=== PATIENT | female | born 1995 | race Caucasian/White ===

== ENCOUNTER 2016-10-05 18:17 | Emergency (ER) | payer OTHER ==
[~2016-10-05] VITALS: Ht 160 cm; Wt 104.5 kg
[~2016-10-05 18:17] MED LIST: MECL25TA2 PO; NITR-58 PO; ONDA4TAB35 PO
[2016-10-05 18:32] VITALS: Ht 160 cm; Wt 104.5 kg
[2016-10-05] MEDS ORDERED: ONDANSETRON 4 MG INJ IV STA (18:58)
[2016-10-05] MEDS ORDERED: KETOROLAC 30 MG INJ IV STA (18:58)
[2016-10-05] MEDS ORDERED: DIPHENHYDRAMINE 50 MG INJ IV ONE (19:00)
[2016-10-05] MEDS ORDERED: SOD CHLORIDE 0.9% 1,000 ML IV ONE (19:00)
[2016-10-05 19:57] LABS: ADD SCAN DIFF NO
[2016-10-05 20:03] LABS: ADD UMIC NO; URINE BILIRUBIN (Dip) NEGATIVE (NEGATIVE); URINE BLOOD (Dip) NEGATIVE (NEGATIVE); URINE COLOR LT. YELLOW (YELLOW); URINE GLUCOSE (Dip) NEGATIVE (NEGATIVE); URINE KETONES (Dip) NEGATIVE (NEGATIVE); URINE LEUKOCYTE ESTERASE (Dip) NEGATIVE (NEGATIVE); URINE NITRITE (Dip) NEGATIVE (NEGATIVE); URINE TOTAL PROTEIN (Dip) NEGATIVE (NEGATIVE); URINE UROBILINOGEN (Dip) 0.2 E.U./dL (0.1-1.0)
[2016-10-05 20:07] LABS: BASOPHIL # 0.1 10^3/ul (0.0-0.1); BASOPHILS % 0.4 % (0.0-2.0); EOSINOPHILS # 0.1 10^3/ul (0.0-0.5); EOSINOPHILS % 0.4 % (0.0-7.0); HEMATOCRIT 41.5 % (37.0-47.0); HEMOGLOBIN 14.3 g/dl (12.0-16.0); LYMPHOCYTES # 1.4 10^3/ul (0.8-2.9); LYMPHOCYTES % 7.5 % (15.0-51.0); MEAN CORPUSCULAR HEMOGLOBIN 30.1 pg (29.0-33.0); MEAN CORPUSCULAR HGB CONC 34.5 g/dl (32.0-37.0); MEAN CORPUSCULAR VOLUME 87.4 fl (82.0-101.0); MEAN PLATELET VOLUME 10.1 fl (7.4-10.4); MONOCYTES % 5.3 % (0.0-11.0); NEUTROPHIL # 16.6 10^3/ul (1.6-7.5); NEUTROPHILS % 85.9 % (39.0-77.0); PLATELET COUNT 247 10^3/UL (140-415); RED BLOOD COUNT 4.75 10^6/ul (4.20-5.40); RED CELL DISTRIBUTION WIDTH 12.3 % (11.5-14.5); WHITE BLOOD COUNT 19.3 10^3/ul (4.8-10.8)
[2016-10-05 20:18] LABS: ALBUMIN 4.7 g/dl (3.3-4.9); ALBUMIN/GLOBULIN RATIO 1.2; BILIRUBIN,INDIRECT 0.6 mg/dl (0-1.1); BILIRUBIN,TOTAL 0.6 mg/dl (0.2-1.3); CALCIUM 9.8 mg/dl (8.4-10.2); CREATININE 0.71 mg/dl (0.44-1.00); POTASSIUM 3.8 mmol/L (3.5-5.1); TOTAL PROTEIN 8.6 g/dl (6.1-8.1)
[2016-10-05] MEDS ORDERED: ONDA-43 PO (20:53)
[2016-10-05] MEDS ORDERED: NAPR-260 PO (20:54)
[2016-10-05] MEDS ORDERED: HYDR-906 PO (20:55)
[2016-10-05 21:05] VITALS: BP 126/70; PULSE 62; RESP 18; TEMP 98.3
--- NOTE | 2016-10-05 21:57 | ERD ---
ER Documentation Chief Complaint Date/Time DATE: 10/05/16 TIME: 21:51 Chief Complaint GARCIA SINCE THIS AM. +N/V HPI This is a 21-year-old female presents to the ER with a headache, sore throat, fever, chills, nausea, vomiting that started this morning. Patient also complains of photophobia. Bleeding is nonbilious nonbloody. She denies diarrhea. Patient has a known extensive history of migraine headaches, which started when she was a teenager. Patient has not gotten a migraine in a few months. States is exactly how her migraines present. Patient denies any neck pain or neck stiffness. She denies any head trauma. She denies any vision loss or vision changes. Patient denies any dizziness. ROS 12 point review of systems was done, all negative except per HPI. Medications Home Meds Active Scripts Hydrocodone/Acetaminophen ([place] 5-325 Tablet) 1 Each Tablet, 1 TAB PO Q6H Y for PAIN, #10 TAB Prov:DOREEN TATUM 10/05/16 Naproxen* (Naprosyn*) 500 Mg Tablet, 500 MG PO BID Y for PAIN AND/OR INFLAMMATION, #30 TAB Prov:DOREEN TATUM 10/05/16 Ondansetron Hcl* (Zofran*) 4 Mg Tab, 4 MG PO Q4H Y for NAUSEA AND OR VOMITING for 15 Days, TAB Prov:DOREEN TATUM 10/05/16 Nitrofurantoin Monohyd Macrocr* (Macrobid*) 100 Mg Capsr, 100 MG PO BID for 5 Days, CAP Prov:KYLER HANSEN PA-C 09/28/15 Ondansetron Hcl* (Zofran* ODT) 4 mg -ODT Tab.disper, 4 MG PO Q6 Y for NAUSEA AND /OR VOMITING, #20 TAB Prov:KYLER HANSEN PA-C 09/28/15 Meclizine Hcl* (Antivert*) 25 Mg Tablet, 25 MG PO Q6H Y for DIZZINESS, #20 TAB Prov:KYLER HANSEN PA-C 09/28/15 Allergies Allergies: Coded Allergies: No Known Allergy (Unverified , 03/05/12) PMhx/Soc History of Surgery: Yes ( 2010) Anesthesia Reaction: No Hx Neurological Disorder: Yes (migraines) Hx Respiratory Disorders: No Hx Cardiac Disorders: Yes (high bp during ) Hx Psychiatric Problems: No Hx Miscellaneous Medical Probl: No Hx Alcohol Use: No Hx Substance Use: No Hx Tobacco Use: No Smoking Status: Never smoker Physical Exam Vitals Vital Signs Date Time Temp Pulse Resp B/P Pulse Ox O2 Delivery O2 Flow Rate FiO2 10/05/16 21:05 98.3 62 18 126/70 100 Room Air 10/05/16 18:32 100.8 103 20 136/66 100 Physical Exam GENERAL: The patient is well developed and appropriate for usual state of health , in no apparent distress. HEENT: Atraumatic. Conjunctivae are pink. Pupils equal, round, and reactive to light. Extraocular muscles are grossly intact. Bilateral tympanic membranes are clear with no evidence of erythema, bulging or perforation. No sinus tenderness. Bilateral erythematous tonsils with no tonsillar exudates, uvular deviation, kissing tonsils. NECK: C-spine is soft and supple. There is no cervical lymphadenopathy. CHEST: Clear to auscultation bilaterally. There are no rales, wheezes or rhonchi. HEART: Regular rate and rhythm. No murmurs, clicks, rubs or gallops. EXTREMITIES: Equal pulses bilaterally. There is no peripheral clubbing, cyanosis or edema. No focal swelling or erythema. Full range of motion. Grossly neurovascularly intact. NEURO: Alert and oriented. Cranial nerves II through XII are intact. Motor strength in all 4 extremities with 5/5 strength. Sensation grossly intact. Normal speech and gait. Negative Rhomberg. +2 DTRs. SKIN: There is no apparent rash or petechia. The skin is warm and dry. Result Diagram: 10/05/16194310/05/161943 Results 24 hrs Laboratory Tests Test 10/05/16 19:44 White Blood Count 19.310^3/ul Red Blood Count 4.7510^6/ul Hemoglobin 14.3g/dl Hematocrit 41.5% Mean Corpuscular Volume 87.4fl Mean Corpuscular Hemoglobin 30.1pg Mean Corpuscular Hemoglobin Concent 34.5g/dl Red Cell Distribution Width 12.3% Platelet Count 61521^3/UL Mean Platelet Volume 10.1fl Neutrophils % 85.9% Lymphocytes % 7.5% Monocytes % 5.3% Eosinophils % 0.4% Basophils % 0.4% Nucleated Red Blood Cells % 0.0/100WBC Neutrophils # 16.610^3/ul Lymphocytes # 1.410^3/ul Monocytes # 1.010^3/ul Eosinophils # 0.110^3/ul Basophils # 0.110^3/ul Nucleated Red Blood Cells # 0.010^3/ul Urine Color LT. YELLOW Urine Clarity CLEAR Urine pH 7.5 Urine Specific [place] 1.020 Urine Ketones NEGATIVE Urine Nitrite NEGATIVE Urine Bilirubin NEGATIVE Urine Urobilinogen 0.2 E.U./dL Urine Leukocyte Esterase NEGATIVE Urine Hemoglobin NEGATIVE Urine Glucose NEGATIVE% Urine Total Protein NEGATIVE Sodium Level 140mmol/L Potassium Level 3.8mmol/L Chloride Level 107mmol/L Carbon Dioxide Level 23mmol/L Anion Gap 14 Blood Urea Nitrogen 7mg/dl Creatinine 0.71mg/dl Glucose Level 111mg/dl Calcium Level 9.8mg/dl Total Bilirubin 0.6mg/dl Direct Bilirubin 0.00mg/dl Indirect Bilirubin 0.6mg/dl Aspartate Amino Transf (AST/SGOT) 26IU/L Alanine Aminotransferase (ALT/SGPT) 55IU/L Alkaline Phosphatase 103IU/L Total Protein 8.6g/dl Albumin 4.7g/dl Globulin 3.90g/dl Albumin/Globulin Ratio 1.20 Current Medications Medications (Trade) Dose Ordered Sig/Darrian Route PRN Reason Start Time Stop Time Status Last Admin Dose Admin Ketorolac Tromethamine (Toradol) 30 mg ONCE STAT IV 10/05/16 18:58 10/05/16 19:01 DC 10/05/16 19:57 Ondansetron HCl 4 mg 4 mg ONCE STAT IV 10/05/16 18:58 10/05/16 19:01 DC 10/05/16 19:58 Sodium Chloride (NS) 1,000 ml @ 1,000 mls/hr Q1H ONCE IV 10/05/16 19:00 10/05/16 19:59 DC 10/05/16 19:58 Diphenhydramine HCl (Benadryl) 25 mg ONCE ONCE IV 10/05/16 19:00 10/05/16 19:01 DC 10/05/16 19:58 Procedures/MDM Differential Diagnosis includes but is not limited to; tension headache, migraine headache, cluster headache, sinus headache, nonspecific febrile headache, trigeminal neurologia, subdural hematoma, subarachnoid bleeding, meningitis, encephalitis. Patient is neurologically intact with no focal neurological deficits. Patient's headache is likely a febrile headache vs migraine headache, she does have upper respiratory infection symptoms such as sore throat. On physical examination patient's throat is erythematous. I do not believe that patient had strep throat as there is no exudate her Centor Criteria score is 2. Patient did have an increase in her white blood cells which is likely secondary to viral process. I do not believe the patient has meningitis or encephalitis there are no meningeal signs and she is well- appearing. Patient headache was controlled in the ER along with her nausea. Patient will be sent home with naproxen, Zofran. Patient is to follow-up with her primary care doctor within 1-2 days or return to ER sooner if symptoms worsen. My medical decision making shared with the patient she understands and agrees with plan. Departure Diagnosis: Primary Impression: Headache Condition: Stable Patient Instructions: Self-Care for Headaches Referrals: [facility] (PCP) Additional Instructions: Call your primary care doctor TOMORROW for an appointment during the next 1-2 days.See the doctor sooner or return here if your condition worsens before your appointment time. DOREEN TATUM October 05, 2016 21:57
== END 2016-10-05 21:05 | disposition home or self-care (01) ==
LOC: FTE 18:17
DX: R51 Headache (principal); R11.2 Nausea with vomiting, unspecified
CPT/HCPCS: 36415; 80053; 81003; 85025; 87400; 96374; 96375; J1200; J1885; J2405; J7030; Z7502

== ENCOUNTER 2018-03-31 08:23 | Emergency (ER) | END 2018-03-31 12:40 | disposition home or self-care (01) ==

== ENCOUNTER 2018-12-20 21:35 | Emergency (ER) | payer OTHER ==
[~2018-12-20] VITALS: Ht 160 cm; Wt 118.4 kg
[~2018-12-20 21:35] MED LIST changes: +ACYC800T5 PO; +HYDR-4011 PO; +IBUP-1542 PO; +NAPR-985 PO; +ONDA4TAB13 PO; +ONDA4TAB14 PO; +PENI500T PO; +TYL500 PO
[2018-12-20 21:45] VITALS: BP 143/100; PULSE 85; RESP 22; Ht 160 cm; Wt 118.4 kg
--- NOTE | 2018-12-21 00:34 | ERD ---
ER Documentation Chief Complaint Chief Complaint C/O RT EAR AND RT SIDED GARCIA [id number], HX OF MIGRAINES HPI Patient is a 23-year-old female with no medical problems who presents with facial pain. She also feels a lump in front of her right ear. She complains of right-sided headache. Symptoms started on Wednesday. The pain comes and goes. She tried Advil. She denies fevers. She does have a rash in between her right eye and right nares which is new for her. Upon review of old medical records this is the patient's second visit to the ER since 2011. ROS All systems reviewed and are negative except as per history of present illness. Medications Home Meds Active Scripts Ibuprofen* (Motrin*) 600 Mg Tab, 600 MG PO Q6H PRN for PAIN AND OR ELEVATED TEMP, #30 TAB Prov:MEGHAN GUZMAN MD 12/20/18 Acyclovir* (Zovirax*) 800 Mg Tablet, 800 MG PO 5 TIMES DAILY for 7 Days, TAB Prov:MEGHAN GUZMAN MD 12/20/18 Acetaminophen* (Tylenol*) 500 Mg Tab, 500 MG PO Q4H PRN for FEVER GREATER THAN 100.6, #30 TAB Prov:OLIVER DESOUZA DO 03/31/18 Ibuprofen* (Ibuprofen*) 600 Mg Tablet, 600 MG PO Q6H PRN for pain/fever, #30 TAB Prov:OLIVER DESOUZA DO 03/31/18 Ondansetron (Ondansetron Odt) 4 Mg Tab.rapdis, 4 MG PO Q6H PRN for NAUSEA AND/OR VOMITING, #15 TAB Prov:OLIVER DESOUZA DO 03/31/18 Penicillin V Potassium* (Penicillin V K*) 500 Mg Tab, 500 MG PO BID for strep throat for 10 Days, #20 TAB Prov:OLIVER DESOUZA DO 03/31/18 Hydrocodone/Acetaminophen ([place] 5-325 Tablet) 1 Each Tablet, 1 TAB PO Q6H PRN for PAIN, #10 TAB Prov:DOREEN TATUM 10/05/16 Naproxen* (Naprosyn*) 500 Mg Tablet, 500 MG PO BID PRN for PAIN AND/OR INFLAMMATION, #30 TAB Prov:DOREEN TATUM 10/05/16 Ondansetron Hcl* (Zofran*) 4 Mg Tab, 4 MG PO Q4H PRN for NAUSEA AND OR VOMITING for 15 Days, TAB Prov:DOREEN TATUM Jimmie 10/05/16 Nitrofurantoin Monohyd Macrocr* (Macrobid*) 100 Mg Capsr, 100 MG PO BID for 5 Days, CAP Prov:KYLER HANSEN JASWANT 09/28/15 Ondansetron Hcl* (Zofran* ODT) 4 mg -ODT Tab.disper, 4 MG PO Q6 PRN for NAUSEA AND/OR VOMITING, #20 TAB Prov:KYLER HANSEN JASWANT 09/28/15 Meclizine Hcl* (Antivert*) 25 Mg Tablet, 25 MG PO Q6H PRN for DIZZINESS, #20 TAB Prov:KYLER HANSEN JASWANT 09/28/15 Allergies Allergies: Coded Allergies: No Known Allergy (Unverified , 03/05/12) PMhx/Soc History of Surgery: Yes ( x2) Anesthesia Reaction: No Hx Neurological Disorder: Yes (migraines) Hx Respiratory Disorders: No Hx Cardiac Disorders: Yes (high bp during ) Hx Psychiatric Problems: No Hx Miscellaneous Medical Probl: No Hx Alcohol Use: No Hx Substance Use: No Hx Tobacco Use: No Smoking Status: Never smoker FmHx Family History: diabetes Physical Exam Vitals Vital Signs Date Temp Pulse Resp B/P (MAP) Pulse Ox O2 O2 Flow FiO2 Time Delivery Rate 12/20/18 99.5 85 22 143/100 99 21:45 (114) Physical Exam Const: No acute distress Head: Atraumatic Eyes: Normal Conjunctiva ENT: Normal External Ears, Nose and Mouth. Neck: Full range of motion. No meningismus. Resp: Clear to auscultation bilaterally Cardio: Regular rate and rhythm, no murmurs Abd: Soft, non tender, non distended. Normal bowel sounds Skin: Rash in between the right eye and nares consistent with herpes simplex Back: No midline or flank tenderness Ext: No cyanosis, or edema Neur: Awake and alert Psych: Normal Mood and Affect Procedures/MDM Patient is a 23-year-old female with no medical problems who presents with what I believe is herpes simplex infection of V5. The patient has no eye pain at this time and I doubt herpes ophthalmicus. However I do believe patient would benefit from acyclovir and ibuprofen. Patient will be discharged and can follow-up with her primary doctor within a short follow-up. The patient can r eturn for any worsening symptoms. Departure Diagnosis: Primary Impression: Herpes simplex Condition: Fair Patient Instructions: Acyclovir Oral tablet Additional Instructions: Call your primary care doctor TOMORROW for an appointment during the next 1 WEEK.Tell the machine cleaner that you were referred from this facility.See the doctor sooner or return here if your condition worsens before your appointment time. MEGHAN GUZMAN MD Dec 21, 2018 00:34
== END 2018-12-20 22:13 | disposition home or self-care (01) ==
LOC: FTE 21:35
DX: B00.9 Herpesviral infection, unspecified (principal)
CPT/HCPCS: 99283